=== PATIENT | female | born 1950 | race Caucasian/White ===

== ENCOUNTER 2017-02-21 18:50 | Inpatient (IN) | payer MEDICARE, OTHER ==
[~2017-02-21] VITALS: Ht 152.4 cm; Wt 61.7 kg
--- NOTE | 2017-02-21 18:58 | NUR ---
NEAR SYNCOPAL EPISODE WHILE WALKING LEFT EYE HEMATOMA . GOWNED PT . PLACED ON MONITOR. AWAITING MD ORDER
--- NOTE | 2017-02-21 19:00 | NUR ---
To bed 5 a 66 yo female bibfamily for near syncopal episode while walking, noted with hematoma near left eye. Nad noted. vss. nondiaphoretic. Safety and comfort measures observed. gowned. Awaiting for er md cason.
--- NOTE | 2017-02-21 19:25 | NUR ---
started a saline lock on the left ac g20, blood drawn and sent to lab.
[2017-02-21 19:31] LABS: BASOPHILS % (AUTO) 0.3 % (0.0-2.0); EOSINOPHILS # (AUTO) 0.1 /CMM (0.0-0.7); HEMATOCRIT 34 % (33-45); HEMOGLOBIN 11.5 g/dL (11.5-14.8); LYMPHOCYTES # (AUTO) 2.8 /CMM (0.8-4.8); LYMPHOCYTES % (AUTO) 44.8 % (20.0-44.0); MEAN CORPUSCULAR HEMOGLOBIN 38 PG (26.0-33.0); MEAN CORPUSCULAR HGB CONC 34 g/dl (31.0-36.0); MEAN CORPUSCULAR VOLUME 110 fL (82-100); MONOCYTES # (AUTO) 0.3 /CMM (0.1-1.30); MONOCYTES % (AUTO) 4.8 % (2.0-12.0); NEUTROPHILS % (AUTO) 49.1 % (43.0-81.0); PLATELET COUNT (AUTO) 181 /CMM (150-450); RDW COEFFICIENT OF VARIATION 16.4 (11.5-15.0); RED BLOOD CELL COUNT(AUTO) 3.05 MIL/uL (4.0-5.2); WHITE BLOOD COUNT (AUTO) 6.2 K/uL (4.3-11.0)
[2017-02-21] MEDS ORDERED: SIMV40TA5 PO (19:32)
[2017-02-21] MEDS ORDERED: OMEP20TA68 PO (19:32)
[2017-02-21] MEDS ORDERED: LEVO75TA7 PO (19:32)
[2017-02-21] MEDS ORDERED: CHOL200026 PO (19:32)
[2017-02-21] MEDS ORDERED: MELO-264 PO (19:32)
[2017-02-21] MEDS ORDERED: ASPI-991 PO (19:32)
[2017-02-21 19:46] LABS: INR 0.91 (0.87-1.13); PROTHROMBIN TIME 9.5 SECS (9.5-12.7)
[2017-02-21 19:48] LABS: ALANINE AMINOTRANSFERASE 16 U/L (12-78); ALBUMIN 3.9 g/dL (3.4-5.0); ALKALINE PHOSPHATASE 68 U/L (46-116); ASPARTATE AMINOTRANSFERASE 19 U/L (15-37); BILIRUBIN,DIRECT 0.2 mg/dL (0.0-0.2); BILIRUBIN,TOTAL 0.7 mg/dL (0.2-1.0); CALCIUM, SERUM 8.7 mg/dL (8.5-10.1); CARBON DIOXIDE 27 mmol/L (21-32); CHLORIDE 107 mmol/L (98-107); CREATININE 0.7 mg/dL (0.6-1.3); GLUCOSE 89 mg/dL (74-106); POTASSIUM 3.9 mmol/L (3.5-5.1); SODIUM SERUM 142 mmol/L (136-145); TOTAL PROTEIN, SERUM 7.3 g/dL (6.4-8.2); UREA NITROGEN, BLOOD 14 mg/dL (7-18)
[2017-02-21 19:50] LABS: TROPONIN I < 0.017 ng/mL (0.00-0.056)
--- NOTE | 2017-02-21 19:51 | NUR ---
back from ct.
--- NOTE | 2017-02-21 20:13 | NUR ---
PAGED DR ANIBAL ROONEY FOR PANEL ADMISSION
[2017-02-21 21:00] VITALS: BP 131/79
--- NOTE | 2017-02-21 21:37 | NUR ---
TRANSPORTED PATIENT TO TELE BED 315-2 VIA ALS PROTOCOL, NO INCIDENT NOTED. FAMILY AT BEDSIDE.
[2017-02-21 21:45] VITALS: BP 131/79
[2017-02-21] MEDS ORDERED: MAG HYDROX/AL HYDROX/SIMETH 30 ML UDC PO PRN (22:00)
[2017-02-21] MEDS ORDERED: ONDANSETRON HCL/PF 4 MG/2 ML VIAL IVP PRN (22:00)
[2017-02-21] MEDS ORDERED: MAGNESIUM HYDROXIDE 30 ML UDC PO PRN (22:00)
[2017-02-21] MEDS ORDERED: HYDROCODONE/APAP 5/325MG 1 EACH TABLET PO PRN (22:00)
[2017-02-21] MEDS ORDERED: Z GUARD REMEDY 2 OZ OINT TP PRN (22:00)
[2017-02-21] MEDS ORDERED: ENOXAPARIN SODIUM 40 MG/0.4 ML DISP.SYRIN SQ SCH (22:00)
[2017-02-21] MEDS ORDERED: ZOLPIDEM TARTRATE 5 MG TABLET PO PRN (22:00)
--- NOTE | 2017-02-21 22:13 | NUR ---
RN NOTE; ADMITTED A 66Y/O, F, A, OX4, BELARUSIAN SPEAKING. BREATHING EVENLY. NO SOB. NO ACUTE DISTRESS. SKIN WARM AND DRY. W/ BRUISE AND SMALL ABRASION ON THE L UPPER EYE FOR S/P FALL. IV SITE INTACT. PLACED PT ON THE HEART MONITOR . READING SR AT THIS TIME. VS: WNL. MEDICAL INFO AND HX WAS OBTAINED FROM THE AND THE SON AT THE BED SIDE, NEEDS ATTENDED. CALL LIGHT WITHIN REACH,. WILL CONT TO MONITOR
[2017-02-21] MEDS ORDERED: SIMVASTATIN 40 MG TABLET ONE (22:20)
[2017-02-21] MEDS ORDERED: ENOXAPARIN SODIUM 40 MG/0.4 ML DISP.SYRIN SQ ONE (22:20)
[2017-02-21] MEDS: SIMVASTATIN 40 MG TABLET PO SCH (22:25)
[2017-02-21] MEDS ORDERED: ACETAMINOPHEN 325 MG TABLET ONE (23:31)
[2017-02-21] MEDS: ACETAMINOPHEN 325 MG TABLET PO PRN (23:35)
--- NOTE | 2017-02-21 23:35 | NUR ---
RN NOTE; TYLENOL GIVEN PER PT'S REQUEST FOR C/O MILD H/A. PT REMAINED ALERT W/ NO CHANGE IN MENTAL STATUS OR LOC. SON AT THE BED SIDE. WILL CONT TO MONITOR.
[2017-02-22] VITALS (8 sets, daily range): BP systolic 124–152; BP diastolic 76–98
--- NOTE | 2017-02-22 01:33 | NUR ---
PAGED DR. TARA Mark AND REPORTED ELEVATED LEVEL OF TROPONIN. MD W/ A NEW ORDER TO REPEAT TROPONIN AND EKG LEVEL IN 6 HOURS. NEW ORDER NOTED. CALLED LAB AND RT AND MDE THEM AWARE. PT SLEEPING AT THIS TIME W/ NO S/S OR C/O PAIN OR DISCOMFORT. NO CHEST PAIN. VS:WNL. ON TELE MONITOR READING SR W/ RATE OF 80.
--- NOTE | 2017-02-22 04:06 | NUR ---
SUPINE POSITION: BP: 147/87, HR: 74 SITTING POSITION: BP: 152/98, HR:86 STANDING POSITION: BP: 133/94, HR: 85 Addendum: 02/22/17 at 0418 by JENNIFER ASTUDILLO RN Amended: Links added.
--- NOTE | 2017-02-22 06:11 | NUR ---
RN NOTE; PT IN BED SLEEPING W/ FAMILY AT THE BED SIDE. BREATHING EVENLY. NO SOB. NO DISTRESS/ SKIN WARM AND DRY. NO C/O PAIN OR DISCOMFORT. NO NEUROLOGICAL CHANGES, NO ACUTE EVENT DURING THE NIGHT. SR ON HEART MONITOR. NEEDS ATTENDED .ASSISTED W/ ADLS. CALL LIGHT WITHIN REACH. WILL CONT TO MONITOR AND WILL ENDORSE TO AM SHIFT FOR UCHE.
--- NOTE | 2017-02-22 07:30 | NUR ---
RECEIVED PT. ALERT AND ORIENTED X4.COOPERATIVE,MED COMPLIANT.
[2017-02-22 07:40] LABS: BASOPHILS % (AUTO) 0.2 % (0.0-2.0); EOSINOPHILS % (AUTO) 0.4 % (0.0-6.0); HEMATOCRIT 35 % (33-45); HEMOGLOBIN 11.9 g/dL (11.5-14.8); LYMPHOCYTES # (AUTO) 3.3 /CMM (0.8-4.8); LYMPHOCYTES % (AUTO) 38.1 % (20.0-44.0); MEAN CORPUSCULAR HEMOGLOBIN 38 PG (26.0-33.0); MEAN CORPUSCULAR HGB CONC 34 g/dl (31.0-36.0); MEAN CORPUSCULAR VOLUME 112 fL (82-100); MONOCYTES # (AUTO) 0.3 /CMM (0.1-1.30); NEUTROPHILS % (AUTO) 57.3 % (43.0-81.0); PLATELET COUNT (AUTO) 200 /CMM (150-450); RDW COEFFICIENT OF VARIATION 17.3 (11.5-15.0); RED BLOOD CELL COUNT(AUTO) 3.15 MIL/uL (4.0-5.2); WHITE BLOOD COUNT (AUTO) 8.6 K/uL (4.3-11.0)
[2017-02-22] MEDS ORDERED: ENOXAPARIN SODIUM 40 MG/0.4 ML DISP.SYRIN SQ SCH (08:10)
[2017-02-22 08:15] LABS: CALCIUM, SERUM 8.4 mg/dL (8.5-10.1); CREATININE 0.7 mg/dL (0.6-1.3); MAGNESIUM 1.9 mg/dL (1.8-2.4); POTASSIUM 3.9 mmol/L (3.5-5.1)
[2017-02-22 08:18] LABS: EOSINOPHILS % (MANUAL) 1 % (0-4); LYMPHOCYTES % (MANUAL) 36 % (16-48); MONOCYTES % (MANUAL) 4 % (0-11.0); NEUTROPHILS % (MANUAL) 59 (42-76)
[2017-02-22] MEDS: CHOLECALCIFEROL 1,000 UNIT TABLET (VIT D3) PO SCH (08:34)
[2017-02-22] MEDS: PANTOPRAZOLE 40 MG TABLET.DR PO SCH (08:34)
[2017-02-22] MEDS: ASPIRIN EC 81 MG TABLET.DR PO SCH (08:34)
[2017-02-22] MEDS: LEVOTHYROXINE SODIUM 75 MCG TABLET PO SCH (08:34)
[2017-02-22 09:01] LABS: THYROID STIMULATING HORMONE 1.449 uIU/mL (0.358-3.74)
--- NOTE | 2017-02-22 14:30 | NUR ---
PT. HAD CAROTID,ECHO,MRI AND EEG TODAY.GIOVANNI. WELL WELL AMBULATED BY ISIDRO SANCHEZ.A LITTLE WEAK,SON SPOKE WITH DR. BARNETT REGARDING PAIN IN LEFT CHEST POST FALL-NO ORDERS GIVEN.
--- NOTE | 2017-02-22 16:05 | NUR ---
CONSENT SIGNED FOR NM STRESS TEST BY SON-SON SPOKE WITH NINA WELL .
[2017-02-22] MEDS ORDERED: GADOVERSETAMIDE 2.5 MMOL/5 ML VIAL ONE (16:17)
--- NOTE | 2017-02-22 18:36 | NUR ---
TO BE NPO AFTER MIDNIGHT FOR NM STRESS TEST TOMORROW.
--- NOTE | 2017-02-22 19:30 | NUR ---
RN NOTE; RECEIVED PT IN BED AWAKE AND LAERT W/ FAMILY AT THE BED SIDE. BREATHING EVENLY. NO SOB. NAD. SR W/ OCCASIONAL PACs ON TELE MONITOR. NO C/O PAIN OR DISCOMFORT. NO C/O DIZZINESS. NEEDS ATTENDED . INSTRUCTION REGARDING NPO STATUS POST [place] GIVEN TO THE PT AND THE FAMILY. CALL LIGHT WITHIN REACH. WILL CONT TO MONITOR .
[2017-02-22] MEDS: SIMVASTATIN 40 MG TABLET PO SCH (21:20)
[2017-02-22] MEDS: ACETAMINOPHEN 325 MG TABLET PO PRN (21:29)
--- NOTE | 2017-02-22 21:30 | NUR ---
TYLENOL 650MG GIVEN ORDERED PERPT'S REQUEST FOR C/O MILD H/A. WILL CONT TO MONITOR
[2017-02-23] VITALS: BP 118/72
[2017-02-23 04:00] VITALS: BP 133/89
--- NOTE | 2017-02-23 06:31 | NUR ---
RN NOTE; PT IN BED AWAKE AND ALERT. BREATHING EVENLY. NO SOB,. NAD. NO C/O DIZZINESS AT THIS TIME. DENIED ANY PAIN OR DISCOMFORT, SINUS ARRHYTHMIA ON TELE MONITOR. NEEDS ATTENDED .ASSISTED W/ ADLS. CALL LIGHT WITHIN REACH .WILL CONT TO MONITOR AND WILL ENDORSE TO AM SHIFT FOR UCHE.
--- NOTE | 2017-02-23 07:30 | NUR ---
CHAIN SAW MECHANIC OPENING RECEIVED PATIENT A/XO4 DENIES SOB, DIFFICULTY BREATHING OR PAIN. ALL NEEDS IN REACH, BED LOWERED AND LOCKED, RAILS UPX3 FOR SAFETY AND WILL ROUND Q2H OR LESS PER NEEDS.
[2017-02-23 08:00] VITALS: BP 144/88
[2017-02-23] MEDS ORDERED: REGADENOSON 0.4 MG/5 ML DISP.SYRIN IVP ONE (08:00)
--- NOTE | 2017-02-23 08:40 | NUR ---
FIRER LOCOMOTIVE PATIENT WENT FOR STRESS TEST WITH MARLY IN STABLE CONDITION.
--- NOTE | 2017-02-23 09:20 | NUR ---
BUSINESS ETHICS PROFESSOR NOTES PATIENT RETURNED FROM STRESS TEST IN STABLE CONDITION. EATING BREAKFAST
[2017-02-23] MEDS: CHOLECALCIFEROL 1,000 UNIT TABLET (VIT D3) PO SCH (09:29)
[2017-02-23] MEDS: LEVOTHYROXINE SODIUM 75 MCG TABLET PO SCH (09:29)
[2017-02-23] MEDS: ASPIRIN EC 81 MG TABLET.DR PO SCH (09:29)
[2017-02-23] MEDS: PANTOPRAZOLE 40 MG TABLET.DR PO SCH (09:30)
--- NOTE | 2017-02-23 09:35 | NUR ---
STUDENT DEVELOPMENT DEAN PATIENT JUST RETURNED FROM STRESS TEST. WAS NPO PRE-STRESS TEST AND MEDICATIONS WERE HELD UNTIL AFTER THE STRESS TEST.
[2017-02-23 10:07] VITALS: BP_SYST 138; BP_SYST 144; BP_DIAS 85; BP_DIAS 88
[2017-02-23 10:08] VITALS: BP_SYST 126; BP_SYST 133; BP_DIAS 69; BP_DIAS 86
--- NOTE | 2017-02-23 10:30 | NUR ---
STOPPER SETTER NOTES PATIENT TAKEN DOWN FOR STRESS TEST AGAIN.
--- NOTE | 2017-02-23 11:01 | NUR ---
FLAT KNITTER NOTES PATIENT RETURNED FROM STRESS TEST IN STABLE CONDITION
--- NOTE | 2017-02-23 14:21 | NUR ---
CUSTOMS AND IMMIGRATION OFFICERCOAT CUTTER PATIENT WAS DISCHARGED AND LEFT WITH THE FAMILY IN STABLE CONDITION. IV REMOVED, PRESSURE AND DRESSING APPLIED. NO BLEEDING, NO S/S IF INFECTION. IV CATHETER INTACT. EDUCATED ON DISCHARGE. PATIENT/FAMILY/CAREGIVER VERBALIZED UNDERSTANDING OF TEACHINGS. PATIENT WAS ASSISTED DOWNSTAIRS TO A PRIVATE CAR BY RN AND THE FAMILY. ALL BELONGINGS ACCOUNTED FOR. DISCHARGE PAPERS SIGNED AND FILED.
== END 2017-02-23 14:15 | disposition home or self-care (01) | DRG 282 ==
LOC: ER 18:51 → TELE 20:02
DX: I21.4 Non-ST elevation (NSTEMI) myocardial infarction (principal); I95.9 Hypotension, unspecified; S00.83XA Contusion of other part of head, initial encounter; I10 Essential (primary) hypertension; D75.89 Other specified diseases of blood and blood-forming organs; R56.9 Unspecified convulsions; R55 Syncope and collapse; K21.9 Gastro-esophageal reflux disease without esophagitis; S00.12XA Contusion of left eyelid and periocular area, initial encounter; W18.30XA Fall on same level, unspecified, initial encounter; Y92.89 Other specified places as the place of occurrence of the external cause; Z79.899 Other long term (current) drug therapy
CPT/HCPCS: 36415; 70450-TC; 70553-TC; 71010-TC; 80048-TC; 80061-TC; 80076-TC; 83735-TC; 83880; 84100-TC; 84443-TC; 84484-TC; 85025-TC; 85730-TC; 87081-TC; 93307-TC; 93880-TC; 95819-TC; 97001-TC; A4606; A9502; A9579; J1650; J2785; Z7610

== ENCOUNTER 2025-05-02 22:54 | Inpatient (IN) | payer MEDICARE, OTHER ==
[~2025-05-02] VITALS: Ht 160 cm; Wt 65.8 kg
[~2025-05-02 22:54] MED LIST: ASPI-1420 PO; CHOL200026 PO; LEVO75TA7 PO; MELO-107 PO; OMEP20TA5 PO; SIMV-49 PO
[2025-05-03] MEDS ORDERED: MORPHINE SULFATE INJ 4 MG/ML DISP.SYRIN ONE (00:11)
[2025-05-03 00:13] LABS: PLATELET COUNT (AUTO) 188 K/uL (150-450); RED BLOOD CELL COUNT(AUTO) 4.08 MIL/uL (4.0-5.2); RED CELL DISTRIBUTION WIDTH 14.5 % (11.5-15.0); WHITE BLOOD COUNT (AUTO) 7.3 K/uL (4.3-11.0)
[2025-05-03] MEDS: ONDANSETRON HCL/PF 4 MG/2 ML VIAL IV ONE (00:19)
[2025-05-03] MEDS: MORPHINE SULFATE INJ 2 MG/ML DISP.SYRIN IV ONE (00:19)
[2025-05-03 00:24] LABS: CALCIUM, SERUM 8.6 mg/dL (8.5-10.1); CREATININE 0.7 mg/dL (0.6-1.3); SODIUM SERUM 140.0 mmol/L (136-145); UREA NITROGEN, BLOOD 16.0 mg/dL (7-18)
[2025-05-03 00:27] LABS: ASPARTATE AMINOTRANSFERASE 19.0 U/L (15-37); TOTAL PROTEIN, SERUM 7.0 g/dL (6.4-8.2)
[2025-05-03] MEDS ORDERED: MORPHINE SULFATE INJ 2 MG/ML DISP.SYRIN IV PRN (01:00)
[2025-05-03] MEDS ORDERED: ONDANSETRON HCL/PF 4 MG/2 ML VIAL IVP PRN ×2 (01:00→15:00)
[2025-05-03] MEDS ORDERED: ACETAMINOPHEN 650 MG/SUPP.RECT RC PRN (01:00)
[2025-05-03] MEDS: POTASSIUM CL. PREMIX PERIPHER. 50 ML IV SCH (02:23)
[2025-05-03] MEDS: IV D5 LR 1,000 ML IV PRN (02:26)
[2025-05-03 03:00] VITALS: BP 129/66; TEMP 98.1; O2SAT 94
[2025-05-03 06:07] LABS: PHOSPHORUS 3.6 mg/dL (2.5-4.9)
[2025-05-03] MEDS: PANTOPRAZOLE 40 MG VIAL IV SCH (08:07)
[2025-05-03 08:38] VITALS: BP 125/70; TEMP 98.4; O2SAT 94
[2025-05-03] MEDS: LEVOTHYROXINE INJ 100 MCG VIAL IV SCH (08:46)
[2025-05-03] MEDS ORDERED: POTASSIUM CHLORIDE 20 MEQ TAB.PRT.SR PO SCH (09:00)
[2025-05-03] MEDS ORDERED: AMLO-212 PO (09:30)
[2025-05-03] MEDS ORDERED: LEVO100T9 PO (09:30)
[2025-05-03] MEDS ORDERED: CHOL-9 PO (09:30)
[2025-05-03] MEDS ORDERED: ROSU20TA32 PO (09:30)
[2025-05-03] MEDS ORDERED: CYAN10006 IM (09:30)
[2025-05-03] MEDS ORDERED: OMEP20TA5 PO (09:30)
[2025-05-03] MEDS ORDERED: METO25TA4 PO (09:30)
[2025-05-03] MEDS ORDERED: ICOS1CAP PO (09:30)
[2025-05-03] MEDS ORDERED: ACET-285 PO (09:30)
[2025-05-03] MEDS: MORPHINE SULFATE INJ 2 MG/ML DISP.SYRIN IV PRN (10:51)
[2025-05-03] MEDS ORDERED: ACETAMINOPHEN 325 MG TABLET PO ONE (11:00)
[2025-05-03 11:03] LABS: CALCIUM, SERUM 8.8 mg/dL (8.5-10.1); CREATININE 0.7 mg/dL (0.6-1.3); SODIUM SERUM 141.0 mmol/L (136-145); UREA NITROGEN, BLOOD 12.0 mg/dL (7-18)
[2025-05-03] MEDS ORDERED: SUGAMMADEX SODIUM 200 MG/2 ML VIAL IV ONE (11:15)
[2025-05-03] MEDS ORDERED: FENTANYL PF 100MCG/2ML AMPUL ONE (11:15)
[2025-05-03] MEDS ORDERED: ROCURONIUM BROMIDE 50 MG/5 ML ONE (11:16)
[2025-05-03] MEDS ORDERED: FAMOTIDINE/PF INJ 20 MG/2 ML VIAL IV ONE (11:16)
[2025-05-03] MEDS ORDERED: TRANEXAMIC ACID 1,000 MG/10 ML VIAL ONE ×2 (11:16→13:11)
[2025-05-03] MEDS ORDERED: MIDAZOLAM HCL 2 MG/2ML VIAL ONE (11:16)
[2025-05-03] MEDS ORDERED: BUPIVACAINE 0.5 % PF 150 MG/30 ML VIAL ONE ×2 (11:16→12:23)
[2025-05-03 11:22] LABS: INR 0.96 (0.91-1.10)
[2025-05-03] MEDS ORDERED: ONDANSETRON HCL/PF 4 MG/2 ML VIAL ONE (14:31)
[2025-05-03 15:19] VITALS: BP 121/56; TEMP 97.7; O2SAT 99
[2025-05-03 20:00] VITALS: BP 118/66; TEMP 97.9; O2SAT 98
[2025-05-03] MEDS: CEFAZOLIN 2 GM in IV D5W 100 ML IV SCH (20:59)
[2025-05-04 06:50] LABS: PLATELET COUNT (AUTO) 162 K/uL (150-450); RED BLOOD CELL COUNT(AUTO) 3.27 MIL/uL (4.0-5.2); RED CELL DISTRIBUTION WIDTH 14.3 % (11.5-15.0); WHITE BLOOD COUNT (AUTO) 9.2 K/uL (4.3-11.0)
[2025-05-04 06:57] LABS: CALCIUM, SERUM 8.2 mg/dL (8.5-10.1); CREATININE 0.8 mg/dL (0.6-1.3); SODIUM SERUM 140.0 mmol/L (136-145); UREA NITROGEN, BLOOD 12.0 mg/dL (7-18)
[2025-05-04 07:30] VITALS: BP 119/62; TEMP 98.4; O2SAT 95
[2025-05-04] MEDS: AMLODIPINE BESYLATE 5 MG TABLET PO SCH (08:26)
[2025-05-04] MEDS: ASPIRIN EC 81 MG TABLET.DR PO SCH (08:26)
[2025-05-04] MEDS: PANTOPRAZOLE 40 MG TABLET.DR PO SCH (08:26)
[2025-05-04] MEDS: LEVOTHYROXINE SODIUM 100 MCG TABLET PO SCH (08:26)
[2025-05-04] MEDS: METOPROLOL SUCCINATE 25 MG TAB.SR.24H PO SCH (08:27)
[2025-05-04] MEDS: MELOXICAM 7.5 MG TABLET PO SCH (08:27)
[2025-05-04] MEDS: ATORVASTATIN 40 MG TABLET PO SCH (08:27)
[2025-05-04 08:48] LABS: LDL 65 mg/dL (0-99)
[2025-05-04] MEDS ORDERED: Medication Not On Formulary EA (Icosapent Ethyl (Vascepa) 2 GM) PO SCH (09:00)
[2025-05-04] MEDS ORDERED: CHOLECALCIFEROL 10000 UNIT PO SCH (09:00)
[2025-05-04] MEDS: SOD FERRIC GLUC 125 MG in IV NS 0.9% 100 ML IV SCH (14:22)
[2025-05-04] MEDS: ENOXAPARIN SODIUM 40 MG/0.4 ML DISP.SYRIN SQ SCH (14:29)
[2025-05-04 16:00] VITALS: BP 114/63; TEMP 98.1; O2SAT 93
[2025-05-04 20:00] VITALS: BP 118/67; TEMP 98.2; O2SAT 94
[2025-05-04 21:05] VITALS: BP 118/67; TEMP 98.2; O2SAT 94
[2025-05-05 06:04] LABS: PLATELET COUNT (AUTO) 141 K/uL (150-450); RED BLOOD CELL COUNT(AUTO) 3.29 MIL/uL (4.0-5.2); RED CELL DISTRIBUTION WIDTH 14.7 % (11.5-15.0); WHITE BLOOD COUNT (AUTO) 9.8 K/uL (4.3-11.0)
[2025-05-05 06:47] LABS: CALCIUM, SERUM 7.9 mg/dL (8.5-10.1); CREATININE 0.6 mg/dL (0.6-1.3); SODIUM SERUM 143.0 mmol/L (136-145); UREA NITROGEN, BLOOD 14.0 mg/dL (7-18)
[2025-05-05 08:00] VITALS: BP 143/81; TEMP 98.1; O2SAT 94
[2025-05-05] MEDS: HYDROCODONE/APAP 5/325MG TABLET PO PRN (09:25)
[2025-05-05] MEDS ORDERED: HYDROCODONE/APAP 10/325MG TABLET PO PRN (09:30)
[2025-05-05] MEDS ORDERED: MORPHINE SULFATE INJ 4 MG/ML DISP.SYRIN IV PRN (09:30)
[2025-05-05] MEDS: POLYETHYLENE GLYCOL 3350 17 GM POWD.PACK PO SCH (10:20)
[2025-05-05] MEDS: MAGNESIUM HYDROXIDE 30 ML UDC PO PRN (10:20)
[2025-05-05] MEDS ORDERED: MAGN400O6 PO (14:53)
[2025-05-05] MEDS ORDERED: ENOX40DI SQ (14:53)
[2025-05-05] MEDS ORDERED: Hydrocodone/Apap 5/325MG PO (14:53)
[2025-05-05] MEDS ORDERED: POLY17PO29 PO (14:53)
[2025-05-05] MEDS ORDERED: HYDR-3980 PO (14:53)
[2025-05-05 16:00] VITALS: BP 133/77; TEMP 98.1; O2SAT 98
== END 2025-05-05 16:30 | DRG 482 ==
LOC: ER 22:58 → MED 05-03 01:46
PROVIDERS: ADMIT Nurse Practitioner Acute Care; ATTEND Nurse Practitioner Acute Care
PROC: 0QS606Z Reposition Right Upper Femur with Intramedullary Internal Fixation Device, Open Approach (ICD-10-PCS; principal; 2025-05-03 13:00)
DX: S72.141A Displaced intertrochanteric fracture of right femur, initial encounter for closed fracture (principal); E87.6 Hypokalemia; W18.30XA Fall on same level, unspecified, initial encounter; I10 Essential (primary) hypertension; E53.8 Deficiency of other specified B group vitamins; E78.5 Hyperlipidemia, unspecified; E89.0 Postprocedural hypothyroidism; M19.90 Unspecified osteoarthritis, unspecified site; Y93.9 Activity, unspecified; Y92.009 Unspecified place in unspecified non-institutional (private) residence as the place of occurrence of the external cause
CPT/HCPCS: 36415; 71045-TC; 72192-TC; 73501; 73502; 73552; 80048-TC; 80053-TC; 80061-TC; 83735-TC; 84100-TC; 85025-TC; 85027-TC; 85730-TC; 86850-TC; 93307-TC; 97112-TC; 97116-TC; 97530-TC; A4223; G0378; J0690; J1100; J1308; J1650; J2250; J2270; J2405; J2470; J2704; J2765; J2916; J3010; J3480; J3490; J7030; J7060